=== PATIENT | female | born 1980 | race Two or more races ===

== ENCOUNTER 2023-01-25 10:24 | Outpatient (CLI) | payer OTHER | END 2023-01-25 10:46 | disposition home or self-care (01) | LOC: LAB 10:24 | PROVIDERS: ATTEND Internal Medicine Hematology & Oncology | DX: D50.8 Other iron deficiency anemias (principal); R79.9 Abnormal finding of blood chemistry, unspecified; I10 Essential (primary) hypertension; R74.02 Elevation of levels of lactic acid dehydrogenase [LDH]; K76.89 Other specified diseases of liver; D63.8 Anemia in other chronic diseases classified elsewhere; D55.0 Anemia due to glucose-6-phosphate dehydrogenase [G6PD] deficiency; D51.1 Vitamin B12 deficiency anemia due to selective vitamin B12 malabsorption with proteinuria; D51.0 Vitamin B12 deficiency anemia due to intrinsic factor deficiency; E06.3 Autoimmune thyroiditis; E03.8 Other specified hypothyroidism; D69.1 Qualitative platelet defects; D68.00 Von Willebrand disease, unspecified; D68.8 Other specified coagulation defects; D66 Hereditary factor VIII deficiency ==